=== PATIENT | female | born 2000 | race Caucasian/White ===

== ENCOUNTER 2020-04-16 20:23 | Emergency (ER) | payer OTHER ==
--- NOTE | 2020-04-16 20:48 | ER Document Report ---
ED Medical Screen (RME) - General Chief Complaint: Flu Symptoms Stated Complaint: SHORTNESS OF BREATH,NAUSEA,DIARRHEA Time Seen by Provider: 04/16/20 20:44 Mode of Arrival: Ambulatory Information source: Patient Notes: 20-year-old female presented to ED for body aches low-grade fever shortness of breath lethargy and Xanax falling asleep and abdominal pain was 1 week. She states she called the nurse hotline and they told her these were Covid symptoms and she needed to be seen and evaluated. Patient states she does not know of any definite contact with a person with Covid but she is having all of these symptoms for a week and would like to be evaluated. She is alert oriented respirations regular nonlabored afebrile at this time. The patient was evaluated during the global Covid 19 pandemic, and that diagnosis was suspected/considered upon their initial presentation. Their evaluation, treatment and testing was consistent with current guidelines for patients who present with complaints or symptoms that may be related to Covid 19. I have greeted and performed a rapid initial assessment of this patient. A comprehensive ED assessment and evaluation of the patient, analysis of test results and completion of medical decision making process will be conducted by an additional ED providers. Past Medical History - Social History Chew tobacco use (# tins/day): No Frequency of alcohol use: Occasional Drug Abuse: None Physical Exam - Vital signs Vitals: Temp Pulse Resp BP Pulse Ox 98.3 F 89 16 140/74 H 100 04/16/20 20:41 04/16/20 20:41 04/16/20 20:41 04/16/20 20:41 04/16/20 20:41 Course - Vital Signs Vital signs: Temp Pulse Resp BP Pulse Ox 98.3 F 89 16 140/74 H 100 04/16/20 20:41 04/16/20 20:41 04/16/20 20:41 04/16/20 20:41 04/16/20 20:41
--- NOTE | 2020-04-16 23:10 | ER Document Report ---
ED Flu Like - General Chief Complaint: Flu Symptoms Stated Complaint: SHORTNESS OF BREATH,NAUSEA,DIARRHEA Time Seen by Provider: 04/16/20 20:44 Mode of Arrival: Ambulatory Notes: CHIEF COMPLAINT: Multiple complaints HPI: 20-year-old female with 1 week of multiple complaints. Has had slight cough and shortness of breath. No chest pain. No headache. No sore throat. Patient complains of mild vague abdominal discomfort but no focal abdominal pain. Has had intermittent episodes of constipation and diarrhea. Slight difficulty with urination. Denies vaginal bleeding or discharge. Patient was concerned about Covid. ROS: See HPI - all other systems were reviewed and are otherwise negative Constitutional: no fever Eyes: no drainage, no blurred vision ENT: no runny nose, no sore throat Cardiovascular: no chest pain Resp: + SOB, + cough GI: no vomiting, no diarrhea, + abdominal pain : no dysuria Integumentary: no rash Allergy: no hives Musculoskeletal: no extremity pain or swelling, positive myalgia Neurological: no numbness/tingling, no weakness MEDICATIONS: I agree with the patient medications as charted by the RN. ALLERGIES: I agree with the allergies as charted by the RN. PAST MEDICAL HISTORY/PAST SURGICAL HISTORY: Reviewed and agree as charted by RN. SOCIAL HISTORY: Reviewed and agree as charted by RN. FAMILY HISTORY: No significant familial comorbid conditions directly related to patient complaint EXAM: Reviewed vital signs as charted by RN. CONSTITUTIONAL: Alert and oriented and responds appropriately to questions. Well-appearing; well-nourished HEAD: Normocephalic; atraumatic EYES: PERRL; Conjunctivae clear, sclerae non-icteric ENT: normal nose; no rhinorrhea; moist mucous membranes; pharynx without lesions noted, no uvula edema or deviation, no tonsillar hypertrophy, phonation normal NECK: Supple without meningismus; non-tender; no cervical lymphadenopathy, no masses CARD: RRR; no murmurs, no clicks, no rubs, no gallops; symmetric distal pulses RESP: Normal chest excursion without splinting or tachypnea; breath sounds clear and equal bilaterally; no wheezes, no rhonchi, no rales, pulse oximetry 99% on room air not hypoxic ABD/GI: Normal bowel sounds; non-distended; soft, mild generalized tenderness across the abdomen more focal in the lower quadrant and suprapubic region but no definitive focal tenderness unilaterally, no rebound, no guarding; no palpable organomegaly or masses. BACK: The back appears normal and is non-tender to palpation, there is no CVA tenderness EXT: Normal ROM in all joints; non-tender to palpation; no cyanosis, no effusions, no edema SKIN: Normal color for age and race; warm; dry; good turgor; no acute lesions noted NEURO: Moves all extremities equally; Motor and sensory function intact PSYCH: The patient's mood and manner are appropriate. Grooming and personal hygiene are appropriate. MDM: 20-year-old female with multiple complaints. She is primarily concerned about Covid testing. Covid flu and urinalysis ordered via triage process not yet obtained. She has mild generalized discomfort across the lower abdomen not focal in nature has had intermittent episodes of constipation and diarrhea. She is afebrile here. She is not significantly tachycardic. I spoke with the patient at length about her symptoms. Will obtain a urinalysis and she reports some difficulty with urination although no specific focal pain with urination. Will check flu test as well, if negative anticipate discharge with Covid testing. Patient is aware that we cannot rule out other specific conditions of the unlikely to have appendicitis after a week, without fever or significant tachycardia unlikely that she has colitis at this time. If symptoms do not improve in 48 hours of her testing tonight is negative she will return for reevaluation or sooner if she develops focal abdominal pain Past Medical History - General Information source: Patient - Social History Smoking Status: Never Smoker Chew tobacco use (# tins/day): No Frequency of alcohol use: Occasional Drug Abuse: None Family History: Reviewed & Not Pertinent Patient has homicidal ideation: No Physical Exam - Vital signs Vitals: Temp Pulse Resp BP Pulse Ox 98.3 F 89 16 140/74 H 100 04/16/20 20:41 04/16/20 20:41 04/16/20 20:41 04/16/20 20:41 04/16/20 20:41 Course - Re-evaluation Re-evalutation: 04/16/20 23:54 Influenza test and chest x-ray are both negative for acute findings. Patient appears to have a urinary infection which is likely why she has the lower abdominal discomfort. Discussed this at length with her. We will start patient on Keflex. She will still self quarantine at home pending her Covid test result. - Vital Signs Vital signs: Temp Pulse Resp BP Pulse Ox 98.3 F 89 16 140/74 H 100 04/16/20 20:41 04/16/20 20:41 04/16/20 20:41 04/16/20 20:41 04/16/20 20:41 - Laboratory Laboratory results interpreted by me: 04/16/20 23:10 Ur Leukocyte Esterase LARGE H Discharge - Discharge Clinical Impression: Person under investigation for COVID-19 Urinary tract infection Qualifiers: Urinary tract infection type: acute cystitis Hematuria presence: without hematuria Qualified Code(s): N30.00 - Acute cystitis without hematuria Condition: Stable Disposition: HOME, SELF-CARE Instructions: COVID-19 Guidance for Persons Under Investigation, Urinary Tract Infection ([facility]) Additional Instructions: FlexIt appears that you have a urinary tract infection. Take the Keflex to treat this. You are still considered a person under investigation for COVID-19 at this time self quarantine at home pending her test results which may take 2 to 5 days. You should receive notification from the hospital about your test results. If you have worsening abdominal pain or flank pain or onset of fever greater than 101 return for reevaluation of symptoms. Take Zofran for nausea or vomiting. Use the albuterol inhaler 2 puffs every 4 hours as needed for shortness of breath or wheezing. Prescriptions: Cephalexin Monohydrate [Keflex 500 mg Capsule] 500 mg PO Q6H 7 Days #28 capsule Albuterol Sulfate [Proair HFA Inhalation Aerosol 8.5 gm MDI] 2 puff IH Q4H PRN #1 mdi PRN Reason: Ondansetron [Zofran Odt 4 mg Tablet] 1 - 2 tab PO Q4H PRN #15 tab.rapdis PRN Reason: For Nausea/Vomiting Referrals: BLAKE FRANKS MD [ACTIVE STAFF] - Follow up as needed
--- NOTE | 2020-04-16 23:18 | RADIOLOGY REPORT (SQ) ---
XR CHEST 1 VIEW CLINICAL STATEMENT: Low-grade temp fatigue weakness body aches COMPARISON: None FINDINGS: Cardiomediastinal silhouette is within normal limits. There is no focal lung consolidation or pleural effusion. No evidence of pulmonary edema or pneumothorax. IMPRESSION: No acute cardiopulmonary disease.
[2020-04-16 23:39] LABS: APPEARANCE,URINE SLIGHTLY-CLOUDY; BILIRUBIN,URINE NEGATIVE (NEGATIVE); COLOR,URINE YELLOW; GLUCOSE, URINE NEGATIVE (NEGATIVE); KETONES,URINE NEGATIVE (NEGATIVE); LEUKOCYTE ESTERASE,URINE LARGE (NEGATIVE); NITRITE,URINE NEGATIVE (NEGATIVE); PROTEIN,URINE NEGATIVE (NEGATIVE); URINE SPECIFIC GRAVITY 1.013; UROBILINOGEN,URINE NEGATIVE mg/dL (<2.0)
[2020-04-16 23:42] LABS: A TYPE INFLUENZA AG NEGATIVE (NEGATIVE); B INFLUENZA AG NEGATIVE (NEGATIVE)
[2020-04-16] MEDS ORDERED: CEPHALEXIN 500 MG CAPSULE PO ONE (23:54)
[2020-04-17 01:02] VITALS: BP 128/75
== END 2020-04-17 01:01 | disposition home or self-care (01) ==
LOC: ER 20:23
DX: N30.00 Acute cystitis without hematuria (principal); R05 Cough; R06.02 Shortness of breath; K59.00 Constipation, unspecified; R19.7 Diarrhea, unspecified; Z20.828 Contact with and (suspected) exposure to other viral communicable diseases
CPT/HCPCS: 99284; 87635; 81025; 81001; 87804; 71045; C9803